=== PATIENT | female | born 1960 | race Caucasian/White ===

== ENCOUNTER → 2016-07-28 | Outpatient (CLI) | payer MEDICARE ==
[~2016-07-28] MED LIST: APIDRAVL SQ; ASPIR-LOW81 MG PO; ASPIRIN 32325 MG/TAB PO; BUPROPION SR100 MG PO; BUPROPION SR150 MG PO; BUSPAR 30MG30 MG/TAB PO; BUSPAR5 MG PO; CALCIUM + D 6001 TA1 PO; CALCIUM CITRAT200 MG PO; CALCIUM1 CAP PO; CARDI-OMEGA1000 MG PO; CEFTIN500 MG PO; CEPHALEXIN250 M1 PO; CEPHALEXIN500 M1 PO; CINNAMON500 MG PO; CIPRO 500MG TA500 MG PO; COMBIVENT INH14.7 GM IH; DIABETA 2.5MG2.5 MG PO; DOXYCYCLINE 10100 MG PO; DUO-KAPS1 CAP PO; ECOTRIN325 MG PO; EPA FISH OIL1000 MG PO; FENOFIBRATE160 MG PO; FISH OIL1000 MG PO; FORTAMET500 MG PO; GLUCOPHAGE1000 MG PO; GLUCOTROL 5M5 MG/TAB PO; HCTZ 25MG TAB25 MG PO; IBUPROFEN800 MG PO; IPRATROPIUM BROM3 M1 IH; IRON PILL; JANUVIA 100MG100 MG PO; JANUVIA100 MG PO; LANTUS100 U/ML SQ; LATUDA80 MG PO; LEVAQUIN 750MG750 M1 PO; LINSEED OIL 1 ML1 ML; LIPITOR 40MG TA40 MG PO; LIPITOR20 MG PO; LOFIBRA160 MG PO; LOPRESSOR100 MG PO; LOTENSIN40 MG PO; MAVIK PO; MAVIK4 MG PO; METFORMIN HCL500 M1 PO; METFORMIN1000 MG PO; METOPROLOL100 MG PO; MVI PO; NORMODYNE100 MG PO; NOVOLOG 100U100 U/M1 SQ; PREDNISONE20 MG PO; PRILOSEC 20MG20 MG PO; PRILOSEC10 MG PO; PRILOTC PO; RT ADVAIR 228 DISKUS IH; RT ADVAIR HFA 1112 G IH; RT SPIRIVA18 MCG IH; SIMVASTATIN40 MG PO; TARKA; TOPROL XL100 MG PO; TRIAMTERENE AND1 TAB PO; VENTOLIN0.09 MG IH; VICTOZA6 MG/ML SQ; VITAMIN D 400400 IU PO; WOMEN'S ONE DAI1 TAB PO; ZITHROMAX Z PA250 MG PO; ZOCOR 40MG40 MG PO; ZOLOFT 100MG100 MG PO; [UNRECOGNIZED DRUG - REMARK]
== END ==
LOC: MC.RAD 15:00
DX: Z12.31 Encounter for screening mammogram for malignant neoplasm of breast (principal); R92.0 Mammographic microcalcification found on diagnostic imaging of breast

== ENCOUNTER → 2016-07-29 | Outpatient (CLI) | payer MEDICARE | LOC: MC.RAD 13:26 | DX: D48.62 Neoplasm of uncertain behavior of left breast (principal) ==

== ENCOUNTER → 2016-08-11 | Outpatient (CLI) | payer MEDICARE | LOC: MC.RAD 09:54 | DX: R92.1 Mammographic calcification found on diagnostic imaging of breast (principal); R92.2 Inconclusive mammogram ==

== ENCOUNTER 2016-12-15 20:43 | Inpatient (IN) | payer MEDICARE ==
[~2016-12-15] VITALS: Ht 162.6 cm; Wt 142.1 kg
[~2016-12-15 20:43] MED LIST changes: -CEFTIN500 MG PO; -HCTZ 25MG TAB25 MG PO; -LINSEED OIL 1 ML1 ML; -NOVOLOG 100U100 U/M1 SQ; -VICTOZA6 MG/ML SQ
[2016-12-15 21:06] LABS: HEMOGLOBIN 12.6 g/dl (12.5-16.0); MEAN CELL VOLUME 84 fl (80.0-100.0); MEAN CORPUSCULAR HEMOGLOBIN 27 pg (27.0-31.0); MEAN CORPUSCULAR HGB CONC 32 g/dl (33.0-37.0); PLATELET COUNT 136 K/mm3 (130-400); RED BLOOD COUNT 4.62 M/mm3 (4.10-5.30)
[2016-12-15 21:11] LABS: ADD PATHOLOGY DIFF REVIEW NO
[2016-12-15 21:18] LABS: ALANINE AMINOTRANSFERASE 29 U/L (9-52); ALBUMIN 4.2 gm/dL (3.5-5.0); ALKALINE PHOSPHATASE 41 U/L (50-136); ANION GAP 19 mmol/L (7-16); BLOOD UREA NITROGEN 41 mg/dL (7-17); CALCIUM 9.2 mg/dL (8.4-10.2); CARBON DIOXIDE 18 mmol/L (22-30); CHLORIDE 95 mmol/L (98-107); CREATININE, serum 2.63 mg/dL (0.52-1.25); GLUCOSE 296 mg/dL (74-106); LIPASE 36 U/L (23-300); POTASSIUM 4.5 mmol/L (3.4-5.0); SODIUM 132 mmol/L (137-145); TOTAL PROTEIN 7.8 gm/dL (6.4-8.2)
[2016-12-15] MEDS ORDERED: CEFTIN500 MG PO (21:24)
[2016-12-15] MEDS ORDERED: HCTZ 25MG TAB25 MG PO (21:28)
[2016-12-15] MEDS ORDERED: LINSEED OIL 1 ML1 ML (21:28)
[2016-12-15] MEDS ORDERED: NOVOLOG 100U100 U/M1 SQ (21:30)
[2016-12-15] MEDS ORDERED: VICTOZA6 MG/ML SQ (21:31)
[2016-12-15 21:47] LABS: BAND 29 % (0-10); LYMPHOCYTE 10 % (20.0-51.0); NEUTROPHILS 54 % (42.0-75.2); TOTAL CELLS COUNTED 100
[2016-12-15 21:48] LABS: ACETONE,SERUM NEGATIVE
[2016-12-15 22:37] LABS: COLLECTION METHOD CLEAN CATCH
[2016-12-15 22:45] LABS: MUCOUS Present /lpf; PH 5 (5-8); URINE APPEARANCE Hazy; URINE BACTERIA Rare /hpf; URINE BILIRUBIN Negative (NEGATIVE); URINE BLOOD 1+ (NEGATIVE); URINE COLOR Amber; URINE GLUCOSE Negative (NEGATIVE); URINE KETONE Negative (NEGATIVE); URINE LEUKOCYTE ESTERASE 1+ (NEGATIVE); URINE PROTEIN(semi-quant) 2+ (NEGATIVE)
[2016-12-16] VITALS (526 sets, daily range): BP systolic 74–105; BP diastolic 42–58; PULSE 98–115; TEMP 97.9–103; O2SAT 79–99
[2016-12-16 11:00] LABS: MEAN CELL VOLUME 86 fl (80.0-100.0); MEAN CORPUSCULAR HGB CONC 31 g/dl (33.0-37.0); MEAN PLATELET VOLUME 11.7 fl (7.4-10.4); PLATELET COUNT 76 K/mm3 (130-400)
[2016-12-16 11:09] LABS: ADD PATHOLOGY DIFF REVIEW NO; HEMATOCRIT 35.3 % (37.0-47.0); HEMOGLOBIN 11.1 g/dl (12.5-16.0); MEAN CORPUSCULAR HEMOGLOBIN 27 pg (27.0-31.0); WHITE BLOOD COUNT 1.4 K/mm3 (4.8-10.8)
[2016-12-16 11:11] LABS: CALCIUM 8.1 mg/dL (8.4-10.2); POTASSIUM 4.4 mmol/L (3.4-5.0)
[2016-12-16 11:16] LABS: CREATININE, serum 4.47 mg/dL (0.52-1.25)
[2016-12-16 11:47] LABS: BAND 60 % (0-10); LYMPHOCYTE 16 % (20.0-51.0); NEUTROPHILS 24 % (42.0-75.2); PLATELET ESTIMATE DECREASED (NORMAL); TOXIC GRANULATION PRESENT
[2016-12-16 11:48] LABS: DOHLE BODIES PRESENT
[2016-12-16 11:50] LABS: TOTAL CELLS COUNTED 50
[2016-12-16 15:17] LABS: VENOUS BLOOD GAS BE -10.3 (-4-4); VENOUS BLOOD GAS SAO2 59.5 % (60-80)
[2016-12-16 15:18] LABS: VENOUS BLOOD GAS SITE CENTRAL LINE
[2016-12-16 15:29] LABS: ARTERIAL BLD GAS TCO2 CT 17.7; ARTERIAL BLOOD GAS BASE EXCESS -11.9 (-2-2); ARTERIAL BLOOD GAS HCO3 16.3 meq/L (22-26); ARTERIAL BLOOD GAS PO2 93.9 mmHg (80-100); ARTERIAL BLOOD GAS PO2T 93.9 (80-100); OXYHEMOGLOBIN 94.2 %
[2016-12-16 15:30] LABS: ABG VENTILATOR TIDAL VOLUME 500 mL; ARTERIAL BLOOD GAS PHT 7.16 C (7.35-7.45); ARTERIAL BLOOD GAS pH 7.16 (7.35-7.45); ATS? NO
[2016-12-16 15:38] LABS: BASO % 0.2 % (0.0-2.0); EOS % 0.2 % (0-4.0); GRAN # 5.6 (1.4-6.5); GRAN % 86.8 % (42.2-75.2); LYMPH # 0.3 (1.2-3.4); LYMPH % 4.9 % (20.0-51.0); MEAN CELL VOLUME 88 fl (80.0-100.0); MEAN CORPUSCULAR HGB CONC 31 g/dl (33.0-37.0); MEAN PLATELET VOLUME 11.7 fl (7.4-10.4); MONO # 0.4 (0.1-0.6); MONO % 5.4 % (1.7-9.3); PLATELET COUNT 56 K/mm3 (130-400); RED BLOOD COUNT 3.68 M/mm3 (4.10-5.30); WHITE BLOOD COUNT 6.5 K/mm3 (4.8-10.8)
[2016-12-16 15:40] LABS: HEMATOCRIT 32.4 % (37.0-47.0); HEMOGLOBIN 10.1 g/dl (12.5-16.0); MEAN CORPUSCULAR HEMOGLOBIN 27 pg (27.0-31.0)
[2016-12-16 15:55] LABS: INR 1.6 (0.8-3.0); PROTHROMBIN TIME 18.5 SECONDS (9.7-12.8)
[2016-12-16 16:00] LABS: ADJUSTED CALCIUM 8.1 mg/dL (8.4-10.2); ALBUMIN 2.9 gm/dL (3.5-5.0); BILIRUBIN,TOTAL 1.1 mg/dL (0.0-1.0); CALCIUM 7.2 mg/dL (8.4-10.2); POTASSIUM 4.3 mmol/L (3.4-5.0); TOTAL PROTEIN 5.9 gm/dL (6.4-8.2)
[2016-12-16 16:03] LABS: CREATININE, serum 4.82 mg/dL (0.52-1.25)
[2016-12-16 16:24] LABS: ARTERIAL BLD GAS O2 SATURATION 96.5 % (92-100); ARTERIAL BLD GAS TCO2 CT 16.4; ARTERIAL BLOOD GAS BASE EXCESS -12.9 (-2-2); OXYHEMOGLOBIN 95.3 %
[2016-12-16 16:25] LABS: ABG VENTILATOR TIDAL VOLUME 500 mL; ARTERIAL BLOOD GAS PHT 7.15 C (7.35-7.45); ARTERIAL BLOOD GAS pH 7.15 (7.35-7.45)
[2016-12-16 16:29] LABS: VENOUS BLOOD GAS BE -11.1 (-4-4)
[2016-12-16 16:30] LABS: VENOUS BLOOD GAS SITE CENTRAL LINE
[2016-12-16 18:13] LABS: ARTERIAL BLD GAS O2 SATURATION 90.9 % (92-100); ARTERIAL BLD GAS TCO2 CT 16.7; ARTERIAL BLOOD GAS BASE EXCESS -12.6 (-2-2); ARTERIAL BLOOD GAS HCO3 15.3 meq/L (22-26); ARTERIAL BLOOD GAS PO2 69.3 mmHg (80-100); ARTERIAL BLOOD GAS PO2T 69.3 (80-100); OXYHEMOGLOBIN 90.1 %; VENOUS BLOOD GAS SAO2 70.7 % (60-80)
[2016-12-16 18:16] LABS: ALLEN TEST NO; ARTERIAL BLOOD GAS PHT 7.17 C (7.35-7.45); ARTERIAL BLOOD GAS pH 7.17 (7.35-7.45); ATS? YES; VENOUS BLOOD GAS SITE CENTRAL LINE
[2016-12-16 18:17] LABS: ALLENS TEST RESULT FAIL
[2016-12-16 19:44] LABS: VENOUS BLOOD GAS BE -10.5 (-4-4); VENOUS BLOOD GAS SAO2 69.8 % (60-80)
[2016-12-16 19:45] LABS: ARTERIAL BLD GAS O2 SATURATION 95.6 % (92-100); ARTERIAL BLOOD GAS BASE EXCESS -10.9 (-2-2); ARTERIAL BLOOD GAS HCO3 16.7 meq/L (22-26); ARTERIAL BLOOD GAS PO2 91.7 mmHg (80-100); ARTERIAL BLOOD GAS PO2T 91.7 (80-100); OXYHEMOGLOBIN 94.8 %
[2016-12-16 19:46] LABS: ALLEN TEST NO; ALLENS TEST RESULT PASS; ATS? YES
[2016-12-16 19:47] LABS: VENOUS BLOOD GAS SITE CENTRAL LINE
[2016-12-16 20:04] LABS: HEMATOCRIT 34.5 % (37.0-47.0); HEMOGLOBIN 10.8 g/dl (12.5-16.0); MEAN CELL VOLUME 89 fl (80.0-100.0); MEAN CORPUSCULAR HEMOGLOBIN 28 pg (27.0-31.0); MEAN CORPUSCULAR HGB CONC 31 g/dl (33.0-37.0); MEAN PLATELET VOLUME 12.6 fl (7.4-10.4); PLATELET COUNT 79 K/mm3 (130-400); WHITE BLOOD COUNT 12.3 K/mm3 (4.8-10.8)
[2016-12-16 20:15] LABS: ADJUSTED CALCIUM 7.7 mg/dL (8.4-10.2); ALBUMIN 3.2 gm/dL (3.5-5.0); BILIRUBIN,TOTAL 1.7 mg/dL (0.0-1.0); CALCIUM 7.1 mg/dL (8.4-10.2); POTASSIUM 4.8 mmol/L (3.4-5.0); TOTAL PROTEIN 6.2 gm/dL (6.4-8.2)
[2016-12-16 20:24] LABS: CREATININE, serum 4.67 mg/dL (0.52-1.25)
[2016-12-16 21:34] LABS: ARTERIAL BLD GAS O2 SATURATION 96.3 % (92-100); ARTERIAL BLD GAS TCO2 CT 16.7; ARTERIAL BLOOD GAS BASE EXCESS -11.4 (-2-2); ARTERIAL BLOOD GAS HCO3 15.5 meq/L (22-26); ARTERIAL BLOOD GAS PHT 7.22 C (7.35-7.45); ARTERIAL BLOOD GAS PO2 92.4 mmHg (80-100); ARTERIAL BLOOD GAS PO2T 92.4 (80-100); ARTERIAL BLOOD GAS pH 7.22 (7.35-7.45); OXYHEMOGLOBIN 96.2 %
[2016-12-16 21:35] LABS: ALLEN TEST NO; ALLENS TEST RESULT FAIL; ATS? YES
[2016-12-16 21:37] LABS: VENOUS BLOOD GAS BE -9.9 (-4-4); VENOUS BLOOD GAS SAO2 63.2 % (60-80)
[2016-12-16 21:38] LABS: VENOUS BLOOD GAS SITE CENTRAL LINE
== END 2016-12-17 00:25 | disposition short-term general hospital (02) | DRG 689 ==
LOC: COL.ER 20:43 → SURG 22:59 → ICU 12-16 14:13
PROVIDERS: Emergency Medicine; Internal Medicine; Internal Medicine Pulmonary Disease; Nurse Practitioner Family; Urology
PROC: 0T768DZ Dilation of Right Ureter with Intraluminal Device, Via Natural or Artificial Opening Endoscopic (ICD-10-PCS; principal; 2016-12-16 14:30)
PROC: 0BH17EZ Insertion of Endotracheal Airway into Trachea, Via Natural or Artificial Opening (ICD-10-PCS; 2016-12-16 14:30)
PROC: 5A1935Z Respiratory Ventilation, Less than 24 Consecutive Hours (ICD-10-PCS; 2016-12-16 14:30)
DX: N13.6 Pyonephrosis (principal); A41.51 Sepsis due to Escherichia coli [E. coli]; R65.21 Severe sepsis with septic shock; N20.1 Calculus of ureter; E87.4 Mixed disorder of acid-base balance; D61.818 Other pancytopenia; I10 Essential (primary) hypertension; E11.9 Type 2 diabetes mellitus without complications; Z79.4 Long term (current) use of insulin; E66.01 Morbid (severe) obesity due to excess calories; J44.9 Chronic obstructive pulmonary disease, unspecified; Z87.891 Personal history of nicotine dependence; N17.9 Acute kidney failure, unspecified
CPT/HCPCS: 99223; C1769; C2617; C9113; G0378; J0744; J1170; J1650; J1720; J1815; J1956; J2185; J2250; J2370; J2405; J2704; J2765; J3010; J7030; J7050; J7060

== ENCOUNTER → 2017-01-26 | Outpatient (CLI) | payer MEDICARE ==
[~2017-01-26] MED LIST changes: +CEFTIN500 MG PO; +HCTZ 25MG TAB25 MG PO; +LINSEED OIL 1 ML1 ML; +NOVOLOG 100U100 U/M1 SQ; +VICTOZA6 MG/ML SQ
== END ==
LOC: MC.RAD 12:54
DX: R92.1 Mammographic calcification found on diagnostic imaging of breast (principal)

== ENCOUNTER 2017-02-06 22:11 | Emergency (ER) | payer MEDICARE ==
[~2017-02-06] VITALS: Ht 162.6 cm; Wt 152.7 kg
[2017-02-06 22:13] VITALS: BP 191/76; TEMP 97.8
[2017-02-06 23:28] VITALS: PULSE 76
== END 2017-02-06 23:29 | disposition home or self-care (01) ==
LOC: COL.ER 22:11
DX: R21 Rash and other nonspecific skin eruption (principal); E11.9 Type 2 diabetes mellitus without complications; I10 Essential (primary) hypertension; J44.9 Chronic obstructive pulmonary disease, unspecified; E66.01 Morbid (severe) obesity due to excess calories; Z68.43 Body mass index [BMI] 50.0-59.9, adult; Z87.891 Personal history of nicotine dependence; Z79.4 Long term (current) use of insulin; Z79.82 Long term (current) use of aspirin
CPT/HCPCS: J8540

== ENCOUNTER → 2017-08-08 | Outpatient (CLI) | payer MEDICARE, MEDICAID | LOC: MC.RAD 11:01 | DX: Z12.31 Encounter for screening mammogram for malignant neoplasm of breast (principal) ==

== ENCOUNTER 2018-01-26 14:02 | Emergency (ER) | payer MEDICARE ==
[~2018-01-26] VITALS: Ht 162.6 cm; Wt 153.2 kg
[2018-01-26 14:07] VITALS: TEMP 98.3
[2018-01-26 15:15] LABS: BASO % 0.5 % (0.0-2.0); EOS # 0.2 (0.0-0.7); GRAN # 3.6 (1.4-6.5); GRAN % 63.1 % (42.2-75.2); LYMPH # 1.3 (1.2-3.4); LYMPH % 22.8 % (20.0-51.0); MEAN CELL VOLUME 88 fl (80.0-100.0); MEAN CORPUSCULAR HEMOGLOBIN 27 pg (27.0-31.0); MEAN CORPUSCULAR HGB CONC 31 g/dl (33.0-37.0); MEAN PLATELET VOLUME 11.1 fl (7.4-10.4); MONO # 0.6 (0.1-0.6); MONO % 10.1 % (1.7-9.3); PLATELET COUNT 177 K/mm3 (130-400); RED BLOOD COUNT 4.02 M/mm3 (4.10-5.30); REDCELL DISTRIBUTION WIDTH-CV 15.4 % (11.5-14.5)
[2018-01-26 15:17] LABS: HEMATOCRIT 35.3 % (37.0-47.0)
[2018-01-26 15:54] LABS: CALCIUM 9.1 mg/dL (8.4-10.2); CREATININE, serum 1.65 mg/dL (0.52-1.25); POTASSIUM 4.4 mmol/L (3.4-5.0)
[2018-01-26 17:01] VITALS: BP 139/75; PULSE 71
== END 2018-01-26 17:02 | disposition home or self-care (01) ==
LOC: COL.ER 14:02
PROVIDERS: Emergency Medicine
DX: M79.662 Pain in left lower leg (principal); J44.9 Chronic obstructive pulmonary disease, unspecified; I10 Essential (primary) hypertension; E66.01 Morbid (severe) obesity due to excess calories; E78.5 Hyperlipidemia, unspecified; E11.9 Type 2 diabetes mellitus without complications; Z90.49 Acquired absence of other specified parts of digestive tract; Z97.10 Presence of artificial limb (complete) (partial), unspecified; Z90.89 Acquired absence of other organs; Z86.718 Personal history of other venous thrombosis and embolism; Z79.84 Long term (current) use of oral hypoglycemic drugs; Z79.82 Long term (current) use of aspirin

== ENCOUNTER 2018-09-29 21:25 | Emergency (ER) | payer MEDICARE ==
[~2018-09-29] VITALS: Ht 162.6 cm; Wt 160.0 kg
[2018-09-29 21:29] VITALS: TEMP 97.8
[2018-09-29] MEDS ORDERED: NORCO 325 MG-51 TAB PO (23:01)
[2018-09-29 23:15] VITALS: PULSE 73
== END 2018-09-29 23:15 | disposition home or self-care (01) ==
LOC: COL.ER 21:25
DX: M25.561 Pain in right knee (principal); Z79.51 Long term (current) use of inhaled steroids; Z79.82 Long term (current) use of aspirin; Z79.84 Long term (current) use of oral hypoglycemic drugs; Z79.4 Long term (current) use of insulin; Z90.710 Acquired absence of both cervix and uterus; Z90.49 Acquired absence of other specified parts of digestive tract

== ENCOUNTER → 2019-02-07 | Outpatient (CLI) | payer MEDICARE ==
[~2019-02-07] MED LIST changes: +NORCO 325 MG-51 TAB PO
== END ==
LOC: MC.RAD 09:30
DX: Z12.31 Encounter for screening mammogram for malignant neoplasm of breast (principal)

== ENCOUNTER 2019-02-22 19:52 | Emergency (ER) | payer MEDICARE ==
[~2019-02-22] VITALS: Ht 162.6 cm; Wt 154.5 kg
[2019-02-22 19:56] VITALS: TEMP 97.6
[2019-02-22 21:13] LABS: BASO % 0.6 % (0.0-2.0); EOS # 0.1 (0.0-0.7); EOS % 2.6 % (0-4.0); GRAN # 3.6 (1.4-6.5); GRAN % 66.1 % (42.2-75.2); HEMATOCRIT 40.8 % (37.0-47.0); HEMOGLOBIN 12.6 g/dl (12.5-16.0); LYMPH # 1.1 (1.2-3.4); LYMPH % 20.1 % (20.0-51.0); MEAN CELL VOLUME 88 fl (80.0-100.0); MEAN CORPUSCULAR HEMOGLOBIN 27 pg (27.0-31.0); MEAN CORPUSCULAR HGB CONC 31 g/dl (33.0-37.0); MEAN PLATELET VOLUME 10.5 fl (7.4-10.4); MONO # 0.5 (0.1-0.6); PLATELET COUNT 164 K/mm3 (130-400); RED BLOOD COUNT 4.62 M/mm3 (4.10-5.30); REDCELL DISTRIBUTION WIDTH-CV 16.2 % (11.5-14.5)
[2019-02-22 21:31] LABS: ALANINE AMINOTRANSFERASE 17 U/L (9-52); ALBUMIN 4.3 gm/dL (3.5-5.0); ALKALINE PHOSPHATASE 41 U/L (50-136); ANION GAP 10 mmol/L (7-16); AST,SGOT 46 U/L (15-37); BILIRUBIN,TOTAL 0.5 mg/dL (0.0-1.0); BLOOD UREA NITROGEN 32 mg/dL (7-17); C-REACTIVE PROTEIN 1.2 mg/dL (0.0-0.9); CALCIUM 9.3 mg/dL (8.4-10.2); CARBON DIOXIDE 22 mmol/L (22-30); CHLORIDE 107 mmol/L (98-107); CREATININE, serum 1.74 (0.52-1.25); GLUCOSE 155 mg/dL (74-106); POTASSIUM 3.5 mmol/L (3.4-5.0); SODIUM 140 mmol/L (137-145); TOTAL PROTEIN 7.9 gm/dL (6.4-8.2)
[2019-02-22 21:42] LABS: TROPONIN-I < 0.012 ng/mL (0.000-0.035)
[2019-02-22] MEDS ORDERED: ZITHROMAX 250M250 MG PO (21:58)
[2019-02-22] MEDS ORDERED: IPRATROPIUM BROM3 M1 IH (21:58)
[2019-02-22] MEDS ORDERED: PREDNISONE20 MG PO (21:58)
[2019-02-22 22:37] VITALS: BP 160/80; PULSE 72
== END 2019-02-22 22:38 | disposition home or self-care (01) ==
LOC: COL.ER 19:52
PROVIDERS: Emergency Medicine
DX: J44.1 Chronic obstructive pulmonary disease with (acute) exacerbation (principal); N19 Unspecified kidney failure; K21.9 Gastro-esophageal reflux disease without esophagitis; E11.22 Type 2 diabetes mellitus with diabetic chronic kidney disease; I12.9 Hypertensive chronic kidney disease with stage 1 through stage 4 chronic kidney disease, or unspecified chronic kidney disease; F17.210 Nicotine dependence, cigarettes, uncomplicated; Z79.82 Long term (current) use of aspirin; Z79.4 Long term (current) use of insulin
CPT/HCPCS: J7512

== ENCOUNTER 2019-03-15 17:34 | Emergency (ER) | payer MEDICARE ==
[~2019-03-15] VITALS: Ht 162.6 cm; Wt 155.9 kg
[~2019-03-15 17:34] MED LIST changes: +ZITHROMAX 250M250 MG PO
[2019-03-15 21:31] VITALS: BP 165/92; PULSE 88; TEMP 98.2
== END 2019-03-15 21:25 | disposition home or self-care (01) ==
LOC: COL.ER 17:34
DX: S92.404A Nondisplaced unspecified fracture of right great toe, initial encounter for closed fracture (principal); S93.401A Sprain of unspecified ligament of right ankle, initial encounter; S83.91XA Sprain of unspecified site of right knee, initial encounter; Z79.4 Long term (current) use of insulin; Z79.82 Long term (current) use of aspirin; Z79.51 Long term (current) use of inhaled steroids; F17.210 Nicotine dependence, cigarettes, uncomplicated; W01.0XXA Fall on same level from slipping, tripping and stumbling without subsequent striking against object, initial encounter; Y92.009 Unspecified place in unspecified non-institutional (private) residence as the place of occurrence of the external cause

== ENCOUNTER 2019-11-30 15:06 | Emergency (ER) | payer MEDICARE ==
[~2019-11-30] VITALS: Ht 162.6 cm; Wt 157.3 kg
[2019-11-30 15:21] VITALS: TEMP 98.4
[2019-11-30 15:59] LABS: COLLECTION METHOD CLEAN CATCH
[2019-11-30 16:10] LABS: BASO % 0.5 % (0.0-2.0); EOS # 0.2 (0.0-0.7); EOS % 3.5 % (0-4.0); GRAN # 3.8 (1.4-6.5); GRAN % 66.5 % (42.2-75.2); HEMOGLOBIN 12.8 g/dl (12.5-16.0); LYMPH # 1.1 (1.2-3.4); LYMPH % 20.1 % (20.0-51.0); MEAN CELL VOLUME 88 fl (80.0-100.0); MEAN CORPUSCULAR HEMOGLOBIN 27 pg (27.0-31.0); MEAN CORPUSCULAR HGB CONC 31 g/dl (33.0-37.0); MEAN PLATELET VOLUME 10.6 fl (7.4-10.4); MONO # 0.5 (0.1-0.6); PLATELET COUNT 175 K/mm3 (130-400); RED BLOOD COUNT 4.77 M/mm3 (4.10-5.30); REDCELL DISTRIBUTION WIDTH-CV 16.3 % (11.5-14.5)
[2019-11-30 16:12] LABS: ALBUMIN 4.3 gm/dL (3.5-5.0); BILIRUBIN,TOTAL 0.5 mg/dL (0.0-1.0); CALCIUM 9.3 mg/dL (8.4-10.2); CREATININE, serum 2.12 (0.52-1.25); POTASSIUM 4.3 mmol/L (3.4-5.0)
[2019-11-30 16:22] LABS: MUCOUS Present /lpf; PH 5 (5-8); SQUAMOUS EPITHELIAL 0-2 /hpf; URINE APPEARANCE Clear; URINE BACTERIA Many /hpf; URINE BILIRUBIN Negative (NEGATIVE); URINE BLOOD Negative (NEGATIVE); URINE COLOR Yellow; URINE GLUCOSE Negative (NEGATIVE); URINE KETONE Negative (NEGATIVE); URINE LEUKOCYTE ESTERASE Trace (NEGATIVE); URINE NITRATE Positive (NEGATIVE); URINE PROTEIN(semi-quant) 1+ (NEGATIVE); URINE RBC 0-2 /hpf; URINE UROBILINOGEN Negative (NEGATIVE)
[2019-11-30] MEDS ORDERED: NORCO 325 MG-51 TAB PO (17:42)
[2019-11-30] MEDS ORDERED: ZOFRAN ODT4 MG PO (17:42)
[2019-11-30] MEDS ORDERED: CIPRO 500MG TA500 MG PO (17:42)
[2019-11-30 18:03] VITALS: BP 142/78; PULSE 78
== END 2019-11-30 17:55 | disposition home or self-care (01) ==
LOC: COL.ER 15:06
PROVIDERS: Emergency Medicine
DX: N23 Unspecified renal colic (principal); E11.9 Type 2 diabetes mellitus without complications; I10 Essential (primary) hypertension; E66.9 Obesity, unspecified; J44.9 Chronic obstructive pulmonary disease, unspecified; Z68.43 Body mass index [BMI] 50.0-59.9, adult; Z79.51 Long term (current) use of inhaled steroids; Z79.4 Long term (current) use of insulin; Z90.49 Acquired absence of other specified parts of digestive tract; Z90.711 Acquired absence of uterus with remaining cervical stump
CPT/HCPCS: J1170; J1885; J2405; J7030

== ENCOUNTER 2020-09-26 01:07 | Emergency (ER) | payer MEDICARE ==
[~2020-09-26] VITALS: Ht 162.6 cm; Wt 160.5 kg
[~2020-09-26 01:07] MED LIST changes: +ZOFRAN ODT4 MG PO
[2020-09-26 01:08] VITALS: TEMP 98.2
[2020-09-26 01:39] LABS: BASO % 0.4 % (0.0-2.0); EOS # 0.1 (0.0-0.7); EOS % 1.2 % (0-4.0); GRAN # 5.8 (1.4-6.5); GRAN % 78.4 % (42.2-75.2); HEMATOCRIT 40.9 % (37.0-47.0); HEMOGLOBIN 12.3 g/dl (12.5-16.0); LYMPH # 0.8 (1.2-3.4); LYMPH % 10.8 % (20.0-51.0); MEAN CELL VOLUME 91 fl (80.0-100.0); MEAN CORPUSCULAR HEMOGLOBIN 27 pg (27.0-31.0); MEAN CORPUSCULAR HGB CONC 30 g/dl (33.0-37.0); MEAN PLATELET VOLUME 11.4 fl (7.4-10.4); MONO # 0.6 (0.1-0.6); MONO % 8.7 % (1.7-9.3); PLATELET COUNT 148 K/mm3 (130-400); REDCELL DISTRIBUTION WIDTH-CV 16.6 % (11.5-14.5)
[2020-09-26 01:51] LABS: ALBUMIN 4.3 gm/dL (3.5-5.0); BILIRUBIN,TOTAL 0.5 mg/dL (0.0-1.0); C-REACTIVE PROTEIN 4.4 mg/dL (0.0-0.9); CALCIUM 8.9 mg/dL (8.4-10.2); CREATININE, serum 2.66 (0.52-1.25); POTASSIUM 4.2 mmol/L (3.4-5.0); TOTAL PROTEIN 8.4 gm/dL (6.4-8.2)
[2020-09-26 02:47] LABS: COLLECTION METHOD CLEAN CATCH
[2020-09-26 02:53] LABS: PH 6 (5-8); SQUAMOUS EPITHELIAL 0-2 /hpf; URINE APPEARANCE Clear; URINE BACTERIA None Seen /hpf; URINE BILIRUBIN Negative (NEGATIVE); URINE BLOOD Negative (NEGATIVE); URINE COLOR Yellow; URINE GLUCOSE 3+ (NEGATIVE); URINE KETONE Negative (NEGATIVE); URINE LEUKOCYTE ESTERASE Negative (NEGATIVE); URINE NITRATE Negative (NEGATIVE); URINE PROTEIN(semi-quant) 3+ (NEGATIVE); URINE RBC 0-2 /hpf; URINE UROBILINOGEN Negative (NEGATIVE)
[2020-09-26] MEDS ORDERED: AMOXICILLIN 8751 TAB PO (03:28)
[2020-09-26] MEDS ORDERED: ZOFRAN ODT4 MG PO (03:28)
[2020-09-26] MEDS ORDERED: NORCO 325 MG-51 TAB PO (03:28)
[2020-09-26 04:05] VITALS: BP 151/80; PULSE 66
== END 2020-09-26 04:05 | disposition home or self-care (01) ==
LOC: COL.ER 01:07
PROVIDERS: Emergency Medicine
DX: K57.92 Diverticulitis of intestine, part unspecified, without perforation or abscess without bleeding (principal); I12.9 Hypertensive chronic kidney disease with stage 1 through stage 4 chronic kidney disease, or unspecified chronic kidney disease; J44.9 Chronic obstructive pulmonary disease, unspecified; N18.30 Chronic kidney disease, stage 3 unspecified; E11.22 Type 2 diabetes mellitus with diabetic chronic kidney disease; F17.210 Nicotine dependence, cigarettes, uncomplicated; Z87.442 Personal history of urinary calculi; Z88.1 Allergy status to other antibiotic agents; Z88.2 Allergy status to sulfonamides; Z88.8 Allergy status to other drugs, medicaments and biological substances; Z79.82 Long term (current) use of aspirin; Z79.4 Long term (current) use of insulin
CPT/HCPCS: J2270; J2405; J3360; J7030

== ENCOUNTER 2021-08-17 18:47 | Inpatient (IN) | payer MEDICARE ==
[~2021-08-17] VITALS: Ht 162.6 cm; Wt 161.8 kg
[~2021-08-17 18:47] MED LIST changes: +AMOXICILLIN 8751 TAB PO
[2021-08-17 19:59] LABS: BASO % 0.2 % (0.0-2.0); EOS % 0.8 % (0.0-4.0); GRAN # 3.5 K/mm3 (1.4-6.5); GRAN % 68.1 % (42.2-75.2); HEMOGLOBIN 10.7 g/dl (12.5-16.0); LYMPH # 0.9 K/mm3 (1.2-3.4); MEAN CELL VOLUME 88 fl (80.0-100.0); MEAN CORPUSCULAR HEMOGLOBIN 28 pg (27-31); MEAN CORPUSCULAR HGB CONC 32 g/dl (33.0-37.0); MEAN PLATELET VOLUME 10.5 fl (7.4-10.4); MONO # 0.6 K/mm3 (0.1-0.6); MONO % 12.1 % (1.7-9.3); PLATELET COUNT 178 K/mm3 (130-400); RED BLOOD COUNT 3.78 M/mm3 (4.10-5.30); REDCELL DISTRIBUTION WIDTH-CV 16.6 % (11.5-14.5)
[2021-08-17 20:02] LABS: HEMATOCRIT 33.2 % (37.0-47.0)
[2021-08-17 20:19] LABS: BILIRUBIN,TOTAL 0.5 mg/dL (0.2-1.2); CALCIUM 8.3 mg/dL (8.4-10.2); CREATININE, serum 5.1 mg/dL (0.57-1.11); POTASSIUM 4.5 mmol/L (3.5-4.5)
[2021-08-17 20:24] LABS: TROPONIN-I 0.022 ng/mL (0.00-0.033)
[2021-08-17 21:40] LABS: COLLECTION METHOD CLEAN CATCH
[2021-08-17 21:51] LABS: MUCOUS Present (NOT PRESENT); PH 5 (5-8); SQUAMOUS EPITHELIAL 0-2 /hpf (0-10); URINE APPEARANCE Hazy (CLEAR/HAZY); URINE BACTERIA Rare /hpf (NONE SEEN); URINE BILIRUBIN Negative (NEGATIVE); URINE BLOOD 2+ (NEGATIVE); URINE COLOR Yellow (YELLOW); URINE GLUCOSE 1+ (NEGATIVE); URINE KETONE Negative (NEGATIVE); URINE LEUKOCYTE ESTERASE Negative (NEGATIVE); URINE NITRATE Negative (NEGATIVE); URINE PROTEIN(semi-quant) 2+ (NEGATIVE); URINE RBC 0-2 /hpf (0-2); URINE UROBILINOGEN Negative (NEGATIVE)
--- NOTE | 2021-08-17 22:20 | NUR ---
PT admitted to room 305 from ED for covid 19 with SOB, hypoxia and COPD exacerbation, pt requiring 5L O2 per NC to maintain sats >90%. alert and oriented, ambulatory with walker, saline lock placed in RAC per ED, patent and secure, bsc placed beside bed for pt to use. pt has her own CPAP with her to use @HS. oriented to floor, POC, and reviewed home meds and orders.
[2021-08-17 22:26] VITALS: BP 116/65; PULSE 68; TEMP 97.7
[2021-08-17] MEDS ORDERED: TRELEGY ELLIPT1 EACH IH (22:45)
[2021-08-17] MEDS ORDERED: TOPROL XL100 MG PO (22:51)
--- NOTE | 2021-08-17 23:40 | NUR ---
HEPARIN drip started @23cc/hr after 10,000 unit bolus dose, NS started @125 cc/hr, both infusing per PIV in RAC.
[2021-08-18 04:00] VITALS: BP 134/57; PULSE 65; TEMP 97.2
--- NOTE | 2021-08-18 06:35 | NUR ---
PT ON 5L O2 per NC, up to BSC ad kiara, Heparin infusing @23cc/hr and NS @125cc/hr per PIV in RAC, hepXa ordered for 0540, waiting for lab to obtain specimen, prosthetic lab technician at bedside at this time. VQ scan to be done around 0800.
[2021-08-18 06:58] LABS: GRAN # 3.1 K/mm3 (1.4-6.5); GRAN % 78.6 % (42.2-75.2); LYMPH # 0.5 K/mm3 (1.2-3.4); LYMPH % 12.8 % (20.0-51.0); MEAN CELL VOLUME 89 fl (80.0-100.0); MEAN CORPUSCULAR HEMOGLOBIN 28 pg (27-31); MEAN CORPUSCULAR HGB CONC 32 g/dl (33.0-37.0); MEAN PLATELET VOLUME 10.5 fl (7.4-10.4); MONO # 0.3 K/mm3 (0.1-0.6); MONO % 7.6 % (1.7-9.3); PLATELET COUNT 168 K/mm3 (130-400); RED BLOOD COUNT 3.58 M/mm3 (4.10-5.30); REDCELL DISTRIBUTION WIDTH-CV 16.4 % (11.5-14.5)
[2021-08-18 07:02] LABS: HEMATOCRIT 31.7 % (37.0-47.0)
[2021-08-18 07:12] LABS: CALCIUM 7.9 mg/dL (8.4-10.2); CREATININE, serum 4.73 mg/dL (0.57-1.11); POTASSIUM 4.5 mmol/L (3.5-4.5)
[2021-08-18 08:30] VITALS: BP 112/52; BP 212/57; PULSE 66; TEMP 97.4
--- NOTE | 2021-08-18 10:12 | NUR ---
Patient sitting on the edge of the bed upon entering the room. Patient is doing okay this morning and denies any pain. Dr. Leo has already seen the patient. Ordered Remdesivir to be held at this point. This RN attempted to get a 2nd IV site on the patient and was unsuccessful x2. Sandra, RN, was able tot successfully get a 2nd IV in the patients right hand.
[2021-08-18 11:46] VITALS: BP 125/49; PULSE 65; TEMP 98.5
--- NOTE | 2021-08-18 12:53 | NUR ---
The patient is COVID positive. SW contacted the patient to discuss discharge plan. The patient lives alone in [place]. She states that she has a niece that lives in [place] and another niece that lives in [place]. She reports independence with ADLs and has a walker, showerchair, and CPAP from [facility]. The patient's PCP is Dr. Zurdo Kelly and she receives her medications from [facility]. She reports no difficulties obtaining her meds. The patient does not have a DPOA-HC and she was not interested in completing one at this time. The patient states that she is not , does not have any children, and that her parents are not alive. She states that she has two siblings: Rusty Yañez (ph#[phone]) and Jennifer. Rusty and Jennifer live together in [place]. ERIKA informed the patient how her brothers are her legal next of kin. The patient verbalized understanding. The patient plans on returning home upon discharge. She is currently on 4 liters of oxygen. SW to continue to monitor. *Discharge plan: home*
[2021-08-18 15:10] VITALS: BP 113/54; PULSE 65; TEMP 98
--- NOTE | 2021-08-18 17:01 | NUR ---
Patient's Hep Xa was 0.75 this morning, rate decreased from 2,300 to 2,150 units/hr per protocol. Next Hep Xa was 0.08, 1,000 unit bolus completed and rate increased from 2,150 to 2,400 units per protocol.
--- NOTE | 2021-08-18 20:00 | NUR ---
Patient is resting in bed, alert and oriented x 4, VSS, right now wearing her cpap. Receiving HEP drip at 24 units/hr, and NS at 125 ml/hr. Assessment completed, medications provided. No other needs at this time. Call light within reach.
[2021-08-18 20:35] VITALS: BP 103/50; PULSE 68; TEMP 97.8
[2021-08-19 00:24] VITALS: BP 119/55; PULSE 62; TEMP 97.5
[2021-08-19 04:23] LABS: MEAN CELL VOLUME 89 fl (80.0-100.0); MEAN CORPUSCULAR HGB CONC 32 g/dl (33.0-37.0); MEAN PLATELET VOLUME 10.7 fl (7.4-10.4); PLATELET COUNT 192 K/mm3 (130-400); RED BLOOD COUNT 3.17 M/mm3 (4.10-5.30); REDCELL DISTRIBUTION WIDTH-CV 16.2 % (11.5-14.5)
[2021-08-19 04:25] LABS: HEMATOCRIT 28.3 % (37.0-47.0); MEAN CORPUSCULAR HEMOGLOBIN 28 pg (27-31)
[2021-08-19 04:31] VITALS: BP 121/55; PULSE 61; TEMP 97.9
--- NOTE | 2021-08-19 06:15 | NUR ---
Patient had no rest at night. She has been awake watching TV. Pt independent and moved herself from bed to chair pulling one of her IVs out(right wrist). Continue receiving NS 25 ml/hr. and Hep at 24 ml/hr, with 2 consecutive goals. She is at 3 L NC, and CPAP. Report will be given to day RN.
[2021-08-19 07:13] VITALS: BP 118/56; PULSE 60; TEMP 98.1
--- NOTE | 2021-08-19 09:41 | NUR ---
PATIENT DOING WELL THIS MORNING. NO COMPLAINTS AT THIS TIME. CONT TO REQUIRE ONGOING O2 THERAPY AT 3L VIA NC. CONT USE OF DAILY INHALERS. HEP DRIP CURRENTLY RUNNING AT 24ML PER HOUR WITH NO COMPLICATIONS. DENIES ANY PAIN AT THIS TIME. ABLE TO AMBULATE WELL ON OWN. DENIES COVID SYMPTOMS AT THIS TIME
[2021-08-19 11:16] VITALS: BP 123/55; PULSE 65; TEMP 98
[2021-08-19 11:35] LABS: CREATININE, serum 4.36 mg/dL (0.57-1.11); POTASSIUM 4.7 mmol/L (3.5-4.5)
[2021-08-19 16:00] VITALS: BP 125/59; PULSE 61; TEMP 98.3
--- NOTE | 2021-08-19 20:00 | NUR ---
Patient is resting in bed, alert and oriented x 4, VSS, 2L O2. Assessment completed, medications provided. No other needs at this time. Call light within reach.
[2021-08-19 20:26] VITALS: BP 125/51; PULSE 55; TEMP 99.1
[2021-08-20 00:43] VITALS: BP 126/56; PULSE 55; TEMP 98.6
[2021-08-20 05:39] VITALS: BP 132/58; PULSE 61; TEMP 98.7
--- NOTE | 2021-08-20 06:11 | NUR ---
Patient has had a calm night, contiue receiving [id number]. 2L O2 NC. Report will be given to day RN.
[2021-08-20 06:15] LABS: HEMOGLOBIN 10.3 g/dl (12.5-16.0); MEAN CELL VOLUME 91 fl (80.0-100.0); MEAN CORPUSCULAR HEMOGLOBIN 28 pg (27-31); MEAN CORPUSCULAR HGB CONC 31 g/dl (33.0-37.0); MEAN PLATELET VOLUME 10.1 fl (7.4-10.4); PLATELET COUNT 290 K/mm3 (130-400); RED BLOOD COUNT 3.67 M/mm3 (4.10-5.30); REDCELL DISTRIBUTION WIDTH-CV 16.5 % (11.5-14.5)
[2021-08-20 06:22] LABS: HEMATOCRIT 33.5 % (37.0-47.0)
[2021-08-20 06:35] LABS: ALBUMIN 3.1 gm/dL (3.5-5.0); CALCIUM 8.3 mg/dL (8.4-10.2); CREATININE, serum 3.99 mg/dL (0.57-1.11); MAGNESIUM 2.2 mg/dL (1.6-2.6); PHOSPHOROUS 3.7 mg/dL (2.3-4.7); POTASSIUM 4.4 mmol/L (3.5-4.5)
[2021-08-20 07:21] LABS: LYMPHOCYTE 18 % (20.0-51.0); MYELOCYTE 1 % (0-0)
[2021-08-20 07:22] LABS: HYPOCHROMIA 2+
[2021-08-20 07:47] LABS: BAND 9 % (0-10); METAMYELOCYTE 1 % (0-0); NEUTROPHILS 64 % (42.0-75.2)
[2021-08-20 07:48] LABS: PLATELET ESTIMATE NORMAL (NORMAL)
[2021-08-20 08:46] VITALS: BP 134/52; PULSE 52; TEMP 97.9
--- NOTE | 2021-08-20 11:00 | NUR ---
PATIENT DOING WELL THIS SHIFT. NO LONGER REQUIRING OXYGEN THERAPY. CONT TO USE CPAP FOR SLEEPING. NO COMPLAINTS OF PAIN. DENIES COVID SYMPTOMS AT THIS TIME BUT REMAINS ON ISOLATION. APPETITE IS GOOD. TAKES MEDS WHOLE WITHOUT ISSUE. ON CONT NS FLUIDS VIA IV, PATENT WITH NO SIGNS OF INFILTRATION. AMBULATES WELL ON OWN, ENCOURAGED TO CALL FOR ASSIST IF NEEDED.
[2021-08-20 12:07] VITALS: BP 119/45; PULSE 54; TEMP 97.7
[2021-08-20 16:08] VITALS: BP 132/75; PULSE 52; TEMP 98.3
--- NOTE | 2021-08-20 18:54 | NUR ---
We were notified by infectious disease nursing that patient is cleared to come out of COVID isoloation as it is day 13 and she is on room air, I have notified hospitalist and we are moving patient to room 309
[2021-08-20 19:41] VITALS: BP 159/70; PULSE 56; TEMP 98.3
--- NOTE | 2021-08-20 20:30 | NUR ---
Initial shift assessment done- has been resting, no requests, Denies pain/SOB, using her own CPAP at night. Tele on, IV fluids of NS at 125cc/hr.
[2021-08-21 00:26] VITALS: BP 134/63; PULSE 52; TEMP 97.6
--- NOTE | 2021-08-21 02:00 | NUR ---
IV site leaking to R/ac. dc,d..new site to right forearm started by guest house manager Deepika BERRY, Continues with IV fluids of NS at 125cc/hr per orders.
[2021-08-21 04:45] VITALS: BP 119/55; PULSE 59; TEMP 98
[2021-08-21 06:40] LABS: MEAN CELL VOLUME 92 fl (80.0-100.0); MEAN CORPUSCULAR HGB CONC 31 g/dl (33.0-37.0); MEAN PLATELET VOLUME 10.3 fl (7.4-10.4); PLATELET COUNT 202 K/mm3 (130-400); RED BLOOD COUNT 3.18 M/mm3 (4.10-5.30); REDCELL DISTRIBUTION WIDTH-CV 16.4 % (11.5-14.5)
[2021-08-21 06:46] LABS: HEMATOCRIT 29.1 % (37.0-47.0); HEMOGLOBIN 8.9 g/dl (12.5-16.0); MEAN CORPUSCULAR HEMOGLOBIN 28 pg (27-31)
[2021-08-21 06:56] VITALS: BP 143/56; PULSE 64; TEMP 97.5
[2021-08-21 06:56] LABS: ALBUMIN 2.6 gm/dL (3.5-5.0); CALCIUM 7.9 mg/dL (8.4-10.2); CREATININE, serum 3.42 mg/dL (0.57-1.11); PHOSPHOROUS 3.8 mg/dL (2.3-4.7); POTASSIUM 4.4 mmol/L (3.5-4.5)
[2021-08-21 07:46] LABS: BAND 2 % (0-10); LYMPHOCYTE 19 % (20.0-51.0); MYELOCYTE 1 % (0-0); NEUTROPHILS 73 % (42.0-75.2); NUCLEATED RED BLOOD CELL 1 (0-6)
[2021-08-21 07:49] LABS: ANISOCYTOSIS 1+; HYPOCHROMIA 3+; PLATELET ESTIMATE NORMAL (NORMAL)
[2021-08-21 12:52] VITALS: BP 128/56; PULSE 58; TEMP 98.4
--- NOTE | 2021-08-21 13:59 | NUR ---
Primary nurse was assisted with [id number] patient care by [employer] student Oralia Barnard and [employer] instructor Alesia Blackman MSN, RN.
[2021-08-21] MEDS ORDERED: ELIQUIS 5MG PO (14:56)
[2021-08-21] MEDS ORDERED: SODIUM BICARBO650 MG PO (14:58)
[2021-08-21] MEDS ORDERED: NOVOLOG 100U100 U/M1 SQ (15:03)
[2021-08-21] MEDS ORDERED: OMNICEF 300MG300 MG PO (15:04)
[2021-08-21 15:33] VITALS: BP 135/58; PULSE 58; TEMP 97.8
--- NOTE | 2021-08-21 16:30 | NUR ---
IV to right AC removed w/tip intact. Discharge instructions discussed w/pt and all questions answered. Pt escorted out via wheelchair at this time.
== END 2021-08-21 16:30 | disposition home or self-care (01) | DRG 177 ==
LOC: COL.ER 18:47 → MEDICAL 20:39
PROVIDERS: Nurse Practitioner Primary Care; Student in an Organized Health Care Education/Training Program; ADMIT Internal Medicine
PROC: XW033E5 Introduction of Remdesivir Anti-infective into Peripheral Vein, Percutaneous Approach, New Technology Group 5 (ICD-10-PCS; principal; 2021-08-17)
DX: U07.1 COVID-19 (principal); J12.82 Pneumonia due to coronavirus disease 2019; J96.01 Acute respiratory failure with hypoxia; N18.4 Chronic kidney disease, stage 4 (severe); J44.1 Chronic obstructive pulmonary disease with (acute) exacerbation; N17.9 Acute kidney failure, unspecified; E87.2 Acidosis; Z68.43 Body mass index [BMI] 50.0-59.9, adult; I12.9 Hypertensive chronic kidney disease with stage 1 through stage 4 chronic kidney disease, or unspecified chronic kidney disease; E11.22 Type 2 diabetes mellitus with diabetic chronic kidney disease; E66.01 Morbid (severe) obesity due to excess calories; K21.9 Gastro-esophageal reflux disease without esophagitis; F32.A Depression, unspecified; F41.9 Anxiety disorder, unspecified; R16.1 Splenomegaly, not elsewhere classified; I70.90 Unspecified atherosclerosis; G47.33 Obstructive sleep apnea (adult) (pediatric); Z87.442 Personal history of urinary calculi; Z87.891 Personal history of nicotine dependence; Z79.82 Long term (current) use of aspirin; Z79.4 Long term (current) use of insulin; Z86.718 Personal history of other venous thrombosis and embolism
CPT/HCPCS: 99223-AI; 99233-AI; 99239; A9540; J0248; J0456; J0696; J1100; J1644; J1815; J7030; J7050

== ENCOUNTER → 2023-08-01 | Outpatient (CLI) | payer MEDICARE ==
[~2023-08-01] MED LIST changes: +ELIQUIS 5MG PO; +LATUDA60 MG PO; +MYRBETR25MG PO; +OMNICEF 300MG300 MG PO; +PRINIVIL20 MG PO; +SODIUM BICARBO650 MG PO; +TRELEGY ELLIPT1 EACH IH
== END ==
LOC: MC.RAD 10:55
DX: N63.24 Unspecified lump in the left breast, lower inner quadrant (principal)

== ENCOUNTER → 2023-08-16 | Outpatient (CLI) | payer MEDICARE | LOC: MC.RAD 09:56 | DX: N63.20 Unspecified lump in the left breast, unspecified quadrant (principal) ==

== ENCOUNTER 2023-11-21 13:11 | Inpatient (IN) | payer MEDICARE ==
[~2023-11-21] VITALS: Ht 162.6 cm; Wt 295.7 kg
[~2023-11-21 13:11] MED LIST changes: +EFFE25TA PO
[2023-11-22] VITALS (9 sets, daily range): BP systolic 118–168; BP diastolic 64–74; PULSE 54–69; TEMP 97.5–98.1
--- NOTE | 2023-11-22 03:13 | NUR ---
An Electronic Health Record (EHR) downtime event occurred during this patients's care. For legal medical record information generated during the downtime period. For legal medical record information generated during the downtime period, please reference the patient's legal medical record. Paper or scanned documentation has been incorporated into the legal medical record which is maintained in accordance with Health Information Management (HIM) and record retention policies.
[2023-11-22] MEDS ORDERED: Acetaminophen 500 MG TAB PO PRN (04:45)
[2023-11-22] MEDS ORDERED: Docusate Sodium 100 MG CAP PO PRN (04:45)
[2023-11-22] MEDS ORDERED: Polyethylene Glycol 3350 17 GM PDS PO PRN (04:45)
[2023-11-22] MEDS ORDERED: Ondansetron 4 MG TAB PO PRN (04:45)
[2023-11-22] MEDS ORDERED: Formoterol Neb Soln 20 MCG/2 ML UD IH SCH (07:00)
[2023-11-22] MEDS ORDERED: Budesonide Neb Susp 0.5 MG/2 ML AMP IH SCH (07:00)
[2023-11-22] MEDS ORDERED: Heparin Sodium 5000 UNITS/ML SUBCUTANEOUSLY Q8HR SQ SCH (08:00)
[2023-11-22] MEDS ORDERED: Insulin Lispro (HumaLOG) SQ SCH (08:00)
[2023-11-22] MEDS ORDERED: predniSONE 20 MG TAB PO SCH (08:00)
[2023-11-22] MEDS ORDERED: Albuterol/Ipratropium 3 MG-0.5 MG/3 ML Neb Soln IH SCH (08:00)
[2023-11-22] MEDS ORDERED: Heparin 1,000 UNITS/ML 10 ML Multi-Dose VIAL ICA SCH (08:15)
[2023-11-22] MEDS ORDERED: Heparin 1,000 UNITS/ML 10 ML Multi-Dose VIAL IV SCH (08:15)
[2023-11-22] MEDS ORDERED: NS 1,000 ML IV SCH (08:15)
--- NOTE | 2023-11-22 08:30 | NUR ---
patient alert and oriented x4. denies pain ar this time. sitting in recliner eating breakfast. 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 Patient has a right chest hemodyalisis catheter and right antecubital IV.fall precautions in place. call light within reach. chair alarm on.
[2023-11-22] MEDS ORDERED: Azithromycin 250 MG TAB PO SCH (09:00)
[2023-11-22] MEDS ORDERED: Insulin Glargine-ygfn (Lantus) SQ SCH (09:00)
[2023-11-22] MEDS ORDERED: Lisinopril 20 MG TAB PO SCH (09:00)
--- NOTE | 2023-11-22 12:31 | NUR ---
Dialysis Note Pt arrived via WC uf goal was set for 3.0 kg and increased to 4.0. pt began to cramp the last 15 min of tx and uf goal decreased to 3.9. pt dcd back to room without complaints via WC.
--- NOTE | 2023-11-22 12:35 | NUR ---
patient back from hemodyalisis. patient sitting in recliner waiting for lunch to arrive. patient on 2l . call light within reach. bed at lowest position.
[2023-11-22] MEDS ORDERED: IPRATROPIUM BROM3 M1 IH (15:53)
[2023-11-22] MEDS ORDERED: ALBUTEROL0.83 MG/ML IH (15:59)
--- NOTE | 2023-11-22 16:08 | NUR ---
lavender farm worker met with patient to discuss discharge planning. Patient lives alone in [place]. Next of kin and point of contact is Rusty, brother, P# [phone]. PCP is Dr. Kelly, pharmacy is [facility]. Insurance is Medicare A and B. Patient asked about Medicaid. SW explaiend she would have financial counseling assist her with completing the application. DME is CPAP, walker, wheelchair and shower chair. No DPOA-HC and not currently interested in completing one. Patient reports to be independent with ADLS. SW asked about home health services, patient stated she does not currently have any but would be interested in having this service if recommended by the physician. Patient stated she previously had [facility] and would like to use their services again if recommended. Patient stated her niece, Bernice, currently transports her to and from appointments. Patient stated she has dialysis three days a week, TTS at [facility] at 615 am -10 am. Patient would like to return home at time of discharge. SW notified financial counseling that patient wants assistance with applying for Medicaid, they stated they would assist patient. SW contacted patient's brother, Rusty, to notify him of patient's hospitalization. Rusty stated he was aware and only had one question and that was if Medicaid would pay for transportation if she was approved. ERIKA explained they would and explained if she is approved the transportation number is located on the back of the card and patient would call and schedule appointments at least three days in advance. Rusty stated that would be very helpful as patient's niece is currently getting up at 530 am to take patient to her appointments three days a week. Discharge plan: Home
[2023-11-22] MEDS ORDERED: cefTRIAXone 1 G in Water For Injection,Sterile 10 ML IV SCH (17:00)
[2023-11-22] MEDS ORDERED: Lurasidone 20 MG TABLET PO SCH (21:00)
[2023-11-22] MEDS ORDERED: busPIRone 7.5 MG TABLET PO SCH (21:00)
[2023-11-22] MEDS ORDERED: Nystatin 100,000 Units/GM Ointment 15 GM TUBE TP SCH (21:00)
[2023-11-22] MEDS ORDERED: Atorvastatin 20 MG TAB PO SCH (21:00)
[2023-11-23] VITALS (7 sets, daily range): BP systolic 118–130; BP diastolic 55–66; PULSE 55–61; TEMP 97.7–97.9
--- NOTE | 2023-11-23 08:00 | NUR ---
PATIENT ALERT AND ORIENTED X4. PATIENT LAYING IN BED RESTING. PATIENT WEARING CPAP HOOKED TO 2L/NC. PATIENT DENIES PAIN AT THIS TIME. PATIENT SHIFT ASSESSMENT COMPLETED. CALL LIGHT WITHIN REACH BED AT LOWEST POSITION. BED ALATM ON.
[2023-11-23] MEDS ORDERED: OMNICEF 300MG300 MG PO (09:42)
[2023-11-23] MEDS ORDERED: MEDROL 4MG DOSPA4 MG PO (09:43)
[2023-11-23] MEDS ORDERED: OXYGEN NAS (10:14)
--- NOTE | 2023-11-23 10:42 | NUR ---
Initial visit; Patient thanked Experimental Electronics Developer for looking in on her and stated that she was glad Experimental Electronics Developer came in to visit and say a prayer for her. Experimental Electronics Developer wished her well and prayed with her which, "Pleased her very much," she stated.
--- NOTE | 2023-11-23 12:22 | NUR ---
patient discharge instructions given. patient expressed understanding and denied any questions. patient IV removed. patient remains on 2L of oxygen attached to cpap machine while resting in bed. patient instructed to call once patient transport arrives to be escorted out of hospital by PCT or this nurse. call light within reach. bed at lowest position. bed alarm on.
--- NOTE | 2023-11-23 13:11 | NUR ---
industrial services worker attended interdisciplinary clinical rounding with Dr. Leo. Patient is medically ready for discharge. Patient needs an exercise oximetry test completed. SW was notified by RT that patient qualifies for 2 liters with exertion. SW faxed referral for oxygen to [facility]. SW met with patient and explained it would be delivered as soon as possible. Patient stated her niece won't be able to pick her up until after 3 pm. Patient was visiting with financial counseling whom expressed they completed the Medicaid application. SW notified patient's nurse of the above information. Discharge plan: Home with O2
--- NOTE | 2023-11-23 15:30 | NUR ---
PATIENT ESCORTED OUT OF UNIT BY PCT. PATIENT RIDE WAITING AT ENTRANCE.
== END 2023-11-23 15:30 | disposition home or self-care (01) | DRG 189 ==
LOC: COL.ER 13:11 → MEDICAL 16:00
PROVIDERS: Physician Assistant; ADMIT Internal Medicine
PROC: 5A1D70Z Performance of Urinary Filtration, Intermittent, Less than 6 Hours Per Day (ICD-10-PCS; principal; 2023-11-22)
DX: J96.01 Acute respiratory failure with hypoxia (principal); N18.6 End stage renal disease; J44.1 Chronic obstructive pulmonary disease with (acute) exacerbation; I12.0 Hypertensive chronic kidney disease with stage 5 chronic kidney disease or end stage renal disease; Z68.43 Body mass index [BMI] 50.0-59.9, adult; E87.70 Fluid overload, unspecified; F32.A Depression, unspecified; Z20.822 Contact with and (suspected) exposure to COVID-19; E11.22 Type 2 diabetes mellitus with diabetic chronic kidney disease; E78.5 Hyperlipidemia, unspecified; E66.01 Morbid (severe) obesity due to excess calories; K21.9 Gastro-esophageal reflux disease without esophagitis; G47.33 Obstructive sleep apnea (adult) (pediatric); Z90.710 Acquired absence of both cervix and uterus; Z90.49 Acquired absence of other specified parts of digestive tract; Z90.89 Acquired absence of other organs; Z99.89 Dependence on other enabling machines and devices; Z99.2 Dependence on renal dialysis; Z88.2 Allergy status to sulfonamides; Z88.8 Allergy status to other drugs, medicaments and biological substances; Z79.82 Long term (current) use of aspirin; Z79.899 Other long term (current) drug therapy; Z87.891 Personal history of nicotine dependence; Z79.4 Long term (current) use of insulin
CPT/HCPCS: A9270; J0696; J1644; J1815; J7030; J7512

== ENCOUNTER 2024-01-25 07:40 | Day surgery (SDC) | payer MEDICARE ==
[~2024-01-25] VITALS: Ht 162.6 cm; Wt 156.1 kg
[~2024-01-25 07:40] MED LIST changes: +ALBUTEROL0.83 MG/ML IH; +LR 1,000 ML IV SCH; +MEDROL 4MG DOSPA4 MG PO; +OXYGEN NAS
[2024-01-25] MEDS ORDERED: Midazolam 2 MG/2 ML VIAL ONE (08:07)
[2024-01-25] MEDS ORDERED: fentaNYL 50 MCG/ML 2 ML VIAL ONE (08:07)
[2024-01-25] MEDS ORDERED: NS 20 ML IV ONE (08:08)
[2024-01-25] MEDS ORDERED: Glycopyrrolate 0.2 MG/ML 1 ML VIAL ONE (08:08)
[2024-01-25] MEDS ORDERED: ZESTRIL 10MG10 MG PO (08:55)
[2024-01-25] MEDS ORDERED: EFFEXOR 75M75 MG/TAB PO (08:59)
[2024-01-25 09:09] VITALS: BP 131/51; PULSE 60; TEMP 97.8
[2024-01-25 09:11] LABS: CALCIUM 8.9 mg/dL (8.4-10.2); CREATININE, serum 3.59 mg/dL (0.57-1.11); POTASSIUM 3.9 mEq/L (3.5-4.5)
[2024-01-25] MEDS ORDERED: fentaNYL 50 MCG/ML 1 ML SYRINGE/VIAL [PACU/SDC ONLY] IV PRN (10:15)
[2024-01-25] MEDS ORDERED: droPERidol 2.5 MG/ML 2 ML VIAL IV PRN (10:15)
[2024-01-25] MEDS ORDERED: hydrALAZINE 20 MG/ML 1 ML VIAL IV PRN (10:15)
[2024-01-25] MEDS ORDERED: HYDROmorphone 1 MG/1 ML SYRINGE [PACU/SDC ONLY] IV PRN (10:15)
[2024-01-25] MEDS ORDERED: Ondansetron 4 MG/2 ML VIAL IV PRN ×2 (10:15→11:30)
[2024-01-25] MEDS ORDERED: Topical Skin Adhesive 1 EACH (1 ML) TOP ONE (11:25)
[2024-01-25 11:30] VITALS: BP 111/55; PULSE 66; TEMP 97.1
[2024-01-25] MEDS ORDERED: Acetaminophen 325 MG TAB PO PRN (11:30)
[2024-01-25 11:45] VITALS: BP 109/58; PULSE 65
[2024-01-25 12:00] VITALS: BP 120/63; PULSE 64
--- NOTE | 2024-01-25 12:33 | NUR ---
1130: PT TO [place] [facility]IA [facility] FROM OR. REPORT RECEIVED FROM JAMAL WAGGONER AND CARMENCITA MCDANIEL. PT ALERT AND ORIENTED. VSS. DRESSING TO LEFT FISTUA SITE C/D/I. POSITIVE BRUIT AND THRILL NOTED. PT ABLE TO MOVE FINGERS OF OPERATINVE EXTREMITY. PT DENIES PAIN AND NAUSEA. REQUESTING ICE CHIPS. RESTING IN COT. CALL LIGHT IN REACH. NO FAMILY PRESENT. 1145: ALERT AND ORIENTED. VSS. PT TOLERATING ICE CHIPS. DENIES PAIN AND NAUSEA. RESTING IN COT. CALL LIGHT IN REACH. 1200: ALERT AND ORIENTED. VSS. DENIES PAIN AND NAUSEA. DISCHARGE EDUCATION COMPLETE. PT STATED UNDERSTANDING OF HOME AND FOLLOW-UP CARE. DISCHARGE PAPERWORK GIVEN TO PT. IV DC'D AT THIS TIME. ASSISTED PT WITH DRESSING. 1215: PT AMBULATE FROM COT TO WHEELCHAIR WITH STAND-BY ASSIST. PT OFF UNIT PER WHEELCHAIR. PT DISCHARGED TO HOME W/ LIANE MARSH, PER PERSONAL VEHICLE.
== END 2024-01-25 12:15 | disposition home or self-care (01) ==
LOC: SDCO 07:40
PROVIDERS: Nurse Anesthetist, Certified Registered
DX: T82.898A Other specified complication of vascular prosthetic devices, implants and grafts, initial encounter (principal); I12.0 Hypertensive chronic kidney disease with stage 5 chronic kidney disease or end stage renal disease; E11.22 Type 2 diabetes mellitus with diabetic chronic kidney disease; N18.6 End stage renal disease; E66.01 Morbid (severe) obesity due to excess calories; G47.33 Obstructive sleep apnea (adult) (pediatric); C55 Malignant neoplasm of uterus, part unspecified; F17.290 Nicotine dependence, other tobacco product, uncomplicated; Z68.43 Body mass index [BMI] 50.0-59.9, adult; Z79.4 Long term (current) use of insulin; Z79.84 Long term (current) use of oral hypoglycemic drugs; Z79.85 Long-term (current) use of injectable non-insulin antidiabetic drugs
CPT/HCPCS: J0665; J0690; J2250; J2704; J2795; J3010; J7120

== ENCOUNTER → 2024-04-02 | Outpatient (CLI) | payer MEDICARE, MEDICAID ==
[~2024-04-02] VITALS: Ht 162.6 cm; Wt 148.2 kg
[~2024-04-02] MED LIST changes: +EFFEXOR 75M75 MG/TAB PO; -LR 1,000 ML IV SCH; +Lidocaine 2% w EPI (1:100,000) 20 ML Multi-Dose VIAL IJ SCH; +PHOSLO667 MG PO; +TRELEGY ELLIPT1 EAC1; +ZESTRIL 10MG10 MG PO
[2024-04-02 10:14] VITALS: BP 109/55; PULSE 65; TEMP 97.3
[2024-04-02 10:50] VITALS: BP 137/66; PULSE 62
--- NOTE | 2024-04-02 10:54 | NUR ---
Ida tolerated TDC removal with DR. Perrin with no problem. Pressure was held to site for 9 minutes after removal. sterile gauze dressing applied, secured with tegaderm. bs report to Maribeth BERYR.
== END ==
LOC: COL.RAD 08:30
DX: Z45.2 Encounter for adjustment and management of vascular access device (principal)